=== PATIENT | male | born 1945 | race Caucasian/White ===

== ENCOUNTER → 2018-12-31 13:23 | Outpatient (CLI) | payer MEDICARE, OTHER, SELFPAY ==
[2018-12-31 14:19] LABS: BUN Creatinine Ratio 22.2 (6-22); Blood Urea Nitrogen 20 mg/dL (9-20); Calcium 10.2 mg/dL (8.4-10.2); Carbon Dioxide 28 mmol/L (22-32); Chloride 102 mmol/L (98-107); Estimated Glomerular Filt Rate > 60.0 mL/min (>60); Glucose 133 mg/dL (80-110); HEMOLYSIS 17 (0-50); Potassium 4.2 mmol/L (3.4-5.1); Sodium 139 mmol/L (137-145)
[2018-12-31 14:25] LABS: Hemoglobin A1C% w Est Avg Glu 5.8 % (4.0-6.0)
[2018-12-31 15:42] LABS: Vitamin D 25 Hydroxy (D3) 41.4 ng/mL (30.0-100.0)
== END ==
PROVIDERS: PCP Student in an Organized Health Care Education/Training Program; Visit Provider Student in an Organized Health Care Education/Training Program
DX: E11.9 Type 2 diabetes mellitus without complications (principal); E55.9 Vitamin D deficiency, unspecified; I10 Essential (primary) hypertension
CPT/HCPCS: 36415; 80048; 82306; 83036

== ENCOUNTER → 2019-01-06 09:00 | Outpatient (CLI) | payer MEDICARE, OTHER, SELFPAY ==
--- NOTE | 2019-01-06 09:02 | DI.US.S_ITS ---
PROCEDURE: US ABD AORTA ANEURYSM SCREEN INDICATIONS: AAA screen TECHNIQUE: Real time scanning was performed of the aorta and iliac arteries, with image documentation. COMPARISON: None. FINDINGS: Aorta: Proximal aortic diameter measures 2.7 cm. Mid-aorta measures 2.2 cm. Distal aortic diameter is 2.0 cm. Iliac arteries: Right common iliac artery measures 1.5 cm. Left common iliac artery measures 1.3 cm. IMPRESSION: 1. Mildly prominent right common iliac artery. Dictated by: Beverly Gray M.D. on 01/06/2019 at 15:30 Approved by: Beverly Gray M.D. on 01/06/2019 at 15:31
== END ==
PROVIDERS: PCP Student in an Organized Health Care Education/Training Program; Visit Provider Student in an Organized Health Care Education/Training Program
DX: Z13.6 Encounter for screening for cardiovascular disorders (principal); Z87.891 Personal history of nicotine dependence
CPT/HCPCS: 76706

== ENCOUNTER 2019-05-05 07:28 | Day surgery (SDC) | payer MEDICARE, OTHER, SELFPAY ==
[2019-05-05 07:57] VITALS: BP 141/92; PULSE 77; RESP 17; TEMP 36.4; O2SAT 99; BMI 24.3
[2019-05-05] MEDS: SODIUM CHLORIDE 0.9% 1,000 ML 200 ML IV (08:05)
--- NOTE | 2019-05-05 08:23 | P.HP_ITS ---
History of Present Illness History of Present Illness Date Patient Seen: 05/05/19 Time Patient Seen: 08:23 Chief complaint: [id number] SCREENING COLONOSCOPY Narrative: Patient presents for colorectal screening. He had a previous screening colonoscopy 13 years ago which was normal. On further history denies any recent gastrointestinal symptoms. No nausea, vomiting, abdominal pain, loss of appetite, unexplained weight loss, change in bowel habits, diarrhea, constipa tion, melena, hematochezia, or bright red blood per rectum. Patient History Medical History Diabetes mellitus (Chronic) Diverticular disease (Chronic) GERD (gastroesophageal reflux disease) (Chronic) Hyperlipidemia (Chronic) Hypertension (Chronic) Surgical History Biceps muscle tear (Resolved) History of knee replacement (~2008) History of repair of hiatal hernia History of tonsillectomy History of vasectomy Family History (Updated 12/30/18 @ 21:41 by Gabrielle Bang) Mother Congestive heart failure Father Myocardial infarction Social History household members: spouse Smoking Status: Never smoker Tobacco: How many years used: 5 Family & Social History Family History Mother Congestive heart failure Father Myocardial infarction Social History: household members spouse Tobacco & Substance use: Smoking Status Never smoker Meds Home Medications and Allergies Home Medications Medication Instructions Recorded Confirmed Type aspirin 81 mg PO HS #0 10/12/16 05/05/19 History losartan 100 mg tablet 100 mg PO QDAY #90 tab 01/21/19 05/05/19 Rx atorvastatin 20 mg tablet 20 mg PO HS #90 tab 01/28/19 05/05/19 Rx Allergies Allergy/AdvReac Type Severity Reaction Status Date / Time No Known Drug Allergies Allergy Verified 05/05/19 07:19 Review of Systems Review of Systems ROS Unobtainable: All systems reviewed & are unremarkable except as noted in HPI and below Exam Vital Signs (past 8 hours): - 05/05/19 07:57 Temperature 97.5 F L Pulse Rate 77 Respiratory Rate 17 Blood Pressure 141/92 H Pulse Oximetry 99 Oxygen Delivery Method Room Air Narrative Exam Narrative: General-no acute distress, well nourished HEENT-moist mucous membranes, no scleral icterus Neck-supple, no lymphadenopathy Chest- non labored respirations, clear to auscultation bilaterally Cardiac-regular rate no peripheral edema Abdomen-soft, nontender, non distended Extremities-warm, well perfused Neurological-alert and oriented, no focal deficits Assessment & Plan Assessment and plan (1) Screening for colon cancer: Current visit: Yes Status: Acute Assessment & Plan narrative: Patient is requiring colorectal screening. Colonoscopy is recommended. Technical details were discussed. Risks, benefits, alternatives explained. Risks including but not limited to sedation, aspiration, bleeding, pain, missed lesion, incomplete examination, need for further radiographic studies, colonic perforation, need for major abdominal surgery, and all attendant risks major surgery were discussed at length. All questions were answered to their satisfaction, and they voiced understanding.
--- NOTE | 2019-05-05 08:26 | PM.OP.ENDO ---
Operative Date/Time/Diagnoses Date of procedure: 05/05/19 Time of procedure: 08:26 Pre-op diagnosis: Screening colonoscopy Post-op diagnosis: other (diverticulosis) Procedure & Clinicians Study performed: Colonoscopy Same procedure as scheduled: Yes Indications: 74-year-old male last previous colonoscopy 13 years ago reportedly normal presents for screening Surgeon: Alexandr Watson Procedure Notes SCOAP/Timeout: Performed Procedure in detail: Patient placed in left lateral decubitus position. Time out was performed. Procedural sedation was administered with Versed and Fentanyl. A rectal exam demonstrated no external hemorrhoids no internal masses. Colonoscopy scope was placed into the rectum and advanced through the colon to the cecum. The ileocecal valve was identified. The scope was then slowly withdrawn examining colon thoroughly in all directions. The colonoscopy was notable for extensive arreola colonic diverticulosis. There were no masses, polyps or colitis. The scope was retroflexed within the rectum demonstrated grade 1 internal hemorrhoids. The rectum was desufflated and the scope removed. Patient tolerated procedure well. Scope withdrawal time: 6 Sedation minutes: 28 Findings: diverticulosis Specimen(s): none sent Complications: none Impression: diverticulosis Post-procedure Recommendations: Colonscopy in 10 years Disposition: PACU
[2019-05-05] MEDS: MIDAZOLAM 5 MG/5 ML VIAL IV (09:07)
[2019-05-05] MEDS: fentaNYL 250 MCG/5 ML INJ IV (09:07)
[2019-05-05] MEDS: ONDANSETRON 4 MG/2 ML INJ IV (09:08)
[2019-05-05 09:11] VITALS: BP 116/64; PULSE 65; RESP 14; TEMP 37.4; O2SAT 94
[2019-05-05 09:16] VITALS: BP 107/65; PULSE 64; RESP 19; O2SAT 93
[2019-05-05 09:20] VITALS: BP 94/63; PULSE 63; RESP 19; O2SAT 93
[2019-05-05 09:24] VITALS: BP 105/70; PULSE 68; RESP 13; O2SAT 97
--- NOTE | 2019-05-05 09:27 | SUR.PHASEI ---
Awake, HOB elevated, drinking juice, recalls pain during procedure when they were 'turning corners, it was a wow. Denies discomfort, dizziness
[2019-05-05 09:32] VITALS: BP 135/75; PULSE 64; RESP 21; TEMP 37.2; O2SAT 95
== END 2019-05-05 09:50 | disposition home or self-care (01) ==
PROVIDERS: PCP Student in an Organized Health Care Education/Training Program; Visit Provider Surgery
PROC: 0DJD8ZZ Inspection of Lower Intestinal Tract, Via Natural or Artificial Opening Endoscopic (ICD-10-PCS; CPT 45378; principal; 2019-05-05 08:30)
DX: Z12.11 Encounter for screening for malignant neoplasm of colon (principal); K57.30 Diverticulosis of large intestine without perforation or abscess without bleeding; E11.9 Type 2 diabetes mellitus without complications; I10 Essential (primary) hypertension; E78.5 Hyperlipidemia, unspecified
CPT/HCPCS: G0121; 99152; 99153; J2250; J2405; J3010

== ENCOUNTER → 2020-01-19 10:43 | Outpatient (CLI) | payer MEDICARE, OTHER, SELFPAY ==
--- NOTE | 2020-01-19 10:44 | DI.US.S_ITS ---
PROCEDURE: US ABDOMEN LIMITED INDICATIONS: Right common iliac artery aneurysm. TECHNIQUE: Real-time scanning was performed of the abdominal and retroperitoneal organs, with image documentation. COMPARISON: None. FINDINGS: Liver: Liver is normal in size and homogeneous in echotexture. Gallbladder: No gallstones identified. Normal gallbladder wall. No pericholecystic fluid. Negative sonographic Aguilar sign. Biliary ducts: Intrahepatic bile ducts are non-dilated. Extrahepatic bile duct caliber measures 3.3 mm. Normal is 6-7 mm or less in diameter, or 10 mm or less post-cholecystectomy. Pancreas: Not well-seen. Kidneys: Right renal cyst present measuring up to 2.4 cm. Aorta: Visualized aorta is normal in caliber at less than 3 cm. Iliacs: Proximal common iliac arteries are normal in caliber at less than 2.5 cm. IMPRESSION: 1. Increased hepatic echogenicity noted possibly related to hepatic steatosis but other sources of hepatocellular disease cannot be excluded. Recommend clinical correlation. 2. Right renal cyst. Dictated by: Talha Moffett [facility] Interpreted: Beverly Gray MD on 01/19/2020 at 13:20 Approved by: Beverly Gray M.D. on 01/19/2020 at 17:44
== END ==
PROVIDERS: PCP Student in an Organized Health Care Education/Training Program; Referring Provider Student in an Organized Health Care Education/Training Program; Visit Provider Student in an Organized Health Care Education/Training Program
DX: I72.3 Aneurysm of iliac artery (principal); N28.1 Cyst of kidney, acquired
CPT/HCPCS: 76705

== ENCOUNTER → 2020-03-05 15:06 | Outpatient (CLI) | payer MEDICARE, OTHER, SELFPAY ==
[2020-03-05 16:52] LABS: Hemoglobin A1C% w Est Avg Glu 6.2 % (4.0-6.0)
[2020-03-05 17:12] LABS: BUN Creatinine Ratio 14.8 (6-22); Blood Urea Nitrogen 20 mg/dL (9-20); Carbon Dioxide 27 mmol/L (22-32); Chloride 105 mmol/L (98-107); Estimated Glomerular Filt Rate 51.8 mL/min (>60); Glucose 97 mg/dL (80-110); HEMOLYSIS < 15 (0-50); Potassium 4.9 mmol/L (3.4-5.1); Sodium 139 mmol/L (137-145); Uric Acid 6.4 mg/dL (3.5-8.5)
[2020-03-05 18:06] LABS: Creatinine Urine Random 396.1 mg/dL; Microalbumi Creatinin Ratio Ur 65.8 ug/mg CR (<30); Microalbumin Urine Random 26.1 mg/dL (0-1.6)
== END ==
PROVIDERS: PCP Student in an Organized Health Care Education/Training Program; Referring Provider Student in an Organized Health Care Education/Training Program; Visit Provider Student in an Organized Health Care Education/Training Program
DX: E11.9 Type 2 diabetes mellitus without complications (principal); M10.9 Gout, unspecified; I10 Essential (primary) hypertension
CPT/HCPCS: 36415; 80048; 82043; 82570; 83036; 84550

== ENCOUNTER → 2020-06-21 09:24 | Outpatient (CLI) | payer MEDICARE, OTHER, SELFPAY ==
[2020-06-21 10:44] LABS: BUN Creatinine Ratio 23.4 (6-22); Blood Urea Nitrogen 22 mg/dL (9-20); Estimated Glomerular Filt Rate > 60.0 mL/min (>60)
[2020-06-21 11:45] LABS: Creatinine Urine Random 131.7 mg/dL
[2020-06-21 11:59] LABS: Microalbumin Urine Random < 0.6 mg/dL (0-1.6)
== END ==
PROVIDERS: PCP Student in an Organized Health Care Education/Training Program; Referring Provider Student in an Organized Health Care Education/Training Program; Visit Provider Student in an Organized Health Care Education/Training Program
DX: E11.9 Type 2 diabetes mellitus without complications (principal); I10 Essential (primary) hypertension; N17.9 Acute kidney failure, unspecified
CPT/HCPCS: 36415; 82043; 82565; 82570; 84520

== ENCOUNTER → 2020-10-01 10:16 | Outpatient (CLI) | payer MEDICARE, OTHER, SELFPAY ==
[2020-10-01] MEDS: COVID-19 VACC, Ad26(JANSSEN)/PF 0.5 ML IM (10:31)
== END ==
PROVIDERS: PCP Student in an Organized Health Care Education/Training Program; Visit Provider Internal Medicine
DX: Z23 Encounter for immunization (principal)
CPT/HCPCS: 0031A; 91303

== ENCOUNTER → 2020-10-06 13:18 | Outpatient (CLI) | payer MEDICARE, OTHER, SELFPAY ==
--- NOTE | 2020-10-30 11:05 | P.HOLT.S_ITS ---
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 Referral & Results Date Patient Seen: 10/06/20 Requesting provider: Anthony Galvan Indication: Palpitations Duration of monitoring (days): 7 Diary information: There was 1 patient triggered event and 1 patient diary entry These patient events were associated with sinus rhythm only Data: Minimum heart rate identified was 39 beats per minute at 10:47 on 10/10/2020 Maximum sinus heart rate was 122 beats per minute at 15:01 on 10/11/2020 Maximum overall heart rate was 174 beats per minute at 12:47 on 10/08/2020 during a 5 beat run of SVT Less than 1% of identified beats were ventricular or supraventricular ectopic in origin, which would classify them as rare. Patient had 1 run of nonsustained monomorphic ventricular tachycardia at 6 beats with a rate of 122 beats per minute. 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 A single run of nonsustained ventricular tachycardia also identified. No etiology for reported symptoms of palpitations identified on this study as patient events were associated only with sinus rhythm. Clinical correlation suggested
== END ==
PROVIDERS: PCP Student in an Organized Health Care Education/Training Program; Referring Provider Student in an Organized Health Care Education/Training Program; Visit Provider Student in an Organized Health Care Education/Training Program
DX: R00.2 Palpitations (principal)
CPT/HCPCS: 93242; 93244

== ENCOUNTER → 2021-07-11 08:51 | Outpatient (CLI) | payer MEDICARE, OTHER, SELFPAY ==
[2021-07-11 09:55] LABS: Hemoglobin A1C% w Est Avg Glu 6.1 % (4.0-6.0)
[2021-07-11 10:18] LABS: BUN Creatinine Ratio 19.6 (6-22); Blood Urea Nitrogen 18 mg/dL (9-20); Calcium 9.4 mg/dL (8.4-10.2); Carbon Dioxide 28 mmol/L (22-32); Chloride 107 mmol/L (98-107); Cholesterol 149 mg/dL (140-199); Estimated Glomerular Filt Rate > 60.0 mL/min (>60); Glucose 127 mg/dL (80-110); HDL Cholesterol 59 mg/dL (40-60); HEMOLYSIS < 15 (0-50); LDL Cholesterol Calculated 77 mg/dL (<100); Potassium 4.8 mmol/L (3.4-5.1); Sodium 139 mmol/L (137-145); Triglycerides 63 mg/dL (35-150)
[2021-07-11 14:49] LABS: Creatinine Urine Random 121.1 mg/dL
[2021-07-11 15:06] LABS: Microalbumin Urine Random < 0.6 mg/dL (0-1.6)
== END ==
PROVIDERS: PCP Student in an Organized Health Care Education/Training Program; Referring Provider Student in an Organized Health Care Education/Training Program; Visit Provider Student in an Organized Health Care Education/Training Program
DX: E11.69 Type 2 diabetes mellitus with other specified complication (principal); E78.5 Hyperlipidemia, unspecified; E11.9 Type 2 diabetes mellitus without complications; I10 Essential (primary) hypertension
CPT/HCPCS: 36415; 80048; 80061; 82043; 82570; 83036

== ENCOUNTER → 2022-01-11 09:32 | Outpatient (CLI) | payer MEDICARE, OTHER, SELFPAY ==
[2022-01-11 10:46] LABS: Hemoglobin A1C% w Est Avg Glu 6.3 % (4.0-6.0)
== END ==
PROVIDERS: PCP Student in an Organized Health Care Education/Training Program; Referring Provider Student in an Organized Health Care Education/Training Program; Visit Provider Student in an Organized Health Care Education/Training Program
DX: E11.9 Type 2 diabetes mellitus without complications (principal)
CPT/HCPCS: 36415; 83036

== ENCOUNTER → 2022-07-27 09:06 | Outpatient (CLI) | payer MEDICARE, OTHER, SELFPAY ==
[2022-07-27 10:24] LABS: Hemoglobin A1C% w Est Avg Glu 6.6 % (4.0-6.0)
[2022-07-27 10:41] LABS: Alanine Aminotransferase 30 IU/L (<50); Albumin 4.2 g/dL (3.5-5.0); Albumin Globulin Ratio 1.3 (1.0-2.8); Alkaline Phosphatase 87 U/L (38-126); Aspartate Aminotransferase 28 IU/L (17-59); BUN Creatinine Ratio 17.7 (6-22); Bilirubin Total 1.8 mg/dL (0.2-1.3); Blood Urea Nitrogen 17 mg/dL (9-20); Calcium 9.2 mg/dL (8.4-10.2); Carbon Dioxide 27 mmol/L (22-32); Chloride 103 mmol/L (98-107); Cholesterol 167 mg/dL (140-199); Estimated Glomerular Filt Rate > 60 mL/min (>60); Globulin 3.3 g/dL (1.7-4.1); Glucose 133 mg/dL (80-110); HDL Cholesterol 58 mg/dL (40-60); HEMOLYSIS < 15 (0-50); LDL Cholesterol Calculated 92 mg/dL (<100); Potassium 4.6 mmol/L (3.4-5.1); Sodium 138 mmol/L (137-145); Total Protein 7.5 g/dL (6.3-8.2); Triglycerides 86 mg/dL (35-150)
[2022-07-27 11:12] LABS: Creatinine Urine Random 151.1 mg/dL
[2022-07-27 11:15] LABS: Microalbumi Creatinin Ratio Ur 5.2 ug/mg CR (<30); Microalbumin Urine Random 0.8 mg/dL (0-1.6)
== END ==
PROVIDERS: PCP Student in an Organized Health Care Education/Training Program; Referring Provider Student in an Organized Health Care Education/Training Program; Visit Provider Student in an Organized Health Care Education/Training Program
DX: E11.69 Type 2 diabetes mellitus with other specified complication (principal); E78.5 Hyperlipidemia, unspecified; E11.9 Type 2 diabetes mellitus without complications; I10 Essential (primary) hypertension
CPT/HCPCS: 36415; 80053; 80061; 82043; 82570; 83036

== ENCOUNTER → 2023-10-29 07:22 | Outpatient (CLI) | payer MEDICARE, OTHER, SELFPAY ==
[2023-10-29 09:07] LABS: Alanine Aminotransferase 20 IU/L (<50); Albumin 3.8 g/dL (3.5-5.0); Albumin Globulin Ratio 1.3 (1.0-2.8); Alkaline Phosphatase 83 U/L (38-126); Aspartate Aminotransferase 25 IU/L (17-59); BUN Creatinine Ratio 24.1 (6-22); Bilirubin Total 0.9 mg/dL (0.2-1.3); Blood Urea Nitrogen 26 mg/dL (9-20); Calcium 9.4 mg/dL (8.4-10.2); Carbon Dioxide 25 mmol/L (22-32); Chloride 109 mmol/L (98-107); Cholesterol 145 mg/dL (140-199); Estimated Glomerular Filt Rate > 60 mL/min (>60); Glucose 134 mg/dL (80-110); HDL Cholesterol 63 mg/dL (40-60); HEMOLYSIS < 15 (0-50); LDL Cholesterol Calculated 67 mg/dL (<100); Potassium 4.5 mmol/L (3.4-5.1); Sodium 140 mmol/L (137-145); Total Protein 6.8 g/dL (6.3-8.2); Triglycerides 74 mg/dL (35-150)
== END ==
PROVIDERS: PCP Family Medicine; Referring Provider Family Medicine; Visit Provider Family Medicine
DX: E11.69 Type 2 diabetes mellitus with other specified complication (principal); E11.9 Type 2 diabetes mellitus without complications; E78.5 Hyperlipidemia, unspecified; I10 Essential (primary) hypertension
CPT/HCPCS: 36415; 80053; 80061

== ENCOUNTER → 2024-07-30 10:40 | Outpatient (CLI) | payer MEDICARE, SELFPAY ==
--- NOTE | 2024-07-30 10:41 | DI.RAD.S_ITS ---
PROCEDURE: XR HIP W PEL IF DONE RT 2V INDICATIONS: chronic right hip/groin pain TECHNIQUE: 2 views of the hip were acquired. COMPARISON: None. FINDINGS: Bones: Moderate to severe right and [id number] left hip arthrosis. No acute displaced fracture Soft tissues: No suspicious calcifications IMPRESSION: Right greater than left hip arthrosis. If there is high concern for further derangement, consider MRI evaluation. Dictated by: Bao Damon M.D. on 07/30/2024 at 14:46 Approved by: Bao Damon M.D. on 07/30/2024 at 14:46
== END ==
PROVIDERS: PCP Family Medicine; Referring Provider Family Medicine; Visit Provider Family Medicine
DX: M25.551 Pain in right hip (principal); M16.0 Bilateral primary osteoarthritis of hip
CPT/HCPCS: 73502

== ENCOUNTER → 2024-08-13 09:46 | Outpatient (CLI) | payer MEDICARE, SELFPAY ==
[2024-08-13 10:35] LABS: Add Manual Diff / Slide Review NO; Basophils Absolute Auto 0 /uL (0-100); Basophils Percent Auto 0.4 % (0-2); Eosinophils Absolute Auto 200 /uL (0-450); Eosinophils Percent Auto 1.9 % (2-4); Hematocrit 45.7 % (41-53); Hemoglobin 15.3 g/dL (13.5-17.5); Lymphocytes Absolute Auto 1700 /uL (1100-4500); Lymphocytes Percent Auto 19.9 % (25-40); Mean Corpuscular HGB Conc 33.5 % (30-36); Mean Corpuscular Hemoglobin 31.2 PG (26-34); Monocytes Absolute Auto 1000 /uL (0-900); Monocytes Percent Auto 12.1 % (3-14); Neutrophils Absolute Auto 5700 /uL (1500-7000); Neutrophils Percent Auto 65.7 % (50-75); Platelet Count 309 X10^3/uL (150-400); Red Blood Cell Count 4.91 X10^6/uL (4.5-5.9); Red Cell Distribution Width 15.7 % (11.6-14.8); White Blood Cell Count 8.7 X10^3/uL (4.5-11.0)
[2024-08-13 10:48] LABS: Hemoglobin A1C% w Est Avg Glu 6.7 % (4.0-6.0)
[2024-08-13 10:50] LABS: Alanine Aminotransferase 40 IU/L (<50); Albumin 4.8 g/dL (3.5-5.0); Albumin Globulin Ratio 1.5 (1.0-2.8); Alkaline Phosphatase 91 U/L (38-126); Aspartate Aminotransferase 37 IU/L (17-59); BUN Creatinine Ratio 19.1 (6-22); Bilirubin Total 1.6 mg/dL (0.2-1.3); Blood Urea Nitrogen 25 mg/dL (9-20); Calcium 10.6 mg/dL (8.4-10.2); Carbon Dioxide 26 mmol/L (22-32); Chloride 107 mmol/L (98-107); Cholesterol 175 mg/dL (140-199); Estimated Glomerular Filt Rate 56 mL/min (>60); Globulin 3.3 g/dL (1.7-4.1); Glucose 142 mg/dL (80-110); HDL Cholesterol 62 mg/dL (40-60); HEMOLYSIS < 15 (0-50); LDL Cholesterol Calculated 87 mg/dL (<100); Potassium 4.8 mmol/L (3.4-5.1); Sodium 141 mmol/L (137-145); Total Protein 8.1 g/dL (6.3-8.2); Triglycerides 128 mg/dL (35-150)
[2024-08-13 10:57] LABS: Microalbumin Urine Random 4.1 mg/dL (0-1.6)
== END ==
PROVIDERS: PCP Family Medicine; Referring Provider Family Medicine; Visit Provider Family Medicine
DX: Z00.00 Encounter for general adult medical examination without abnormal findings (principal); E11.69 Type 2 diabetes mellitus with other specified complication; E78.5 Hyperlipidemia, unspecified
CPT/HCPCS: 36415; 80053; 80061; 82043; 82570; 83036; 85025

== ENCOUNTER → 2024-08-21 07:45 | Outpatient (CLI) | payer MEDICARE, SELFPAY ==
--- NOTE | 2024-08-21 07:46 | DI.ECHO.S_ITS ---
[place] [facility]+ [facility] : : [id number] : [place] : : [id number] : : Phone: [phone] Echocardiogram Report + + :Name: ROXIE CLEARY Study Date: 08/21/2024 Height: 73 in : :[facility] ReadingLocation: Weight: 190 lb : : Gender: Male BSA: 2.1 m2 : :: 1945 Age: 79 yrs BP: 180/86 mmHg: :Reason For Study: RBBB, TACHY : :Ordering Physician: GAIL, : :TONA Performed By: Jerrod Krishna : :Referring: TONA REYNOLDS : + + Interpretation Summary Sinus bradycardia with heart rate 55-60 bpm. Uncontrolled hypertension. Normal LV size and mild concentric left ventricular hypertrophy. Normal wall motion and LV systolic function. Ejection fraction 60-65%. Stage I diastolic dysfunction. Moderate left atrial enlargement; otherwise normal chamber sizes. Mild aortic stenosis and regurgitation in the setting of trileaflet valve with mildly thickened and calcified leaflets. 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 At rest left ventricular outflow tract peak velocity is 1.77 m/s with peak gradient of 13 mmHg. With Valsalva maneuver peak velocity is 3.5 m/s with peak gradient of 49 mmHg. Estimated PA systolic pressure is 48 mmHg assuming right atrial pressure of 10 mmHg since inferior vena cava is not visualized. There is no prior study available for comparison. Recommend cardiology consultation. Procedure: A two-dimensional transthoracic echocardiogram with color flow and Doppler was performed. The study quality was technically good. There is no prior echocardiogram noted for this patient. The patient was in normal sinus rhythm during the exam. Left Ventricle: The left ventricle is normal in size. Left ventricular wall thickness is mildly increased. Proximal septal thickening is noted. There is no ventricular septal defect visualized. The ejection fraction is estimated to be 55-60%. There are no focal wall motion abnormalities. Diastolic parameters suggest a relaxation abnormality of the left ventricle, consistent with probable normal filling pressures. Right Ventricle: The right ventricle is normal in size and function. Atria: The left atrium is moderately dilated. The right atrium is normal in size. There is no Doppler evidence for an interatrial shunt. Mitral Valve: The mitral valve leaflets are slightly calcified. There is borderline mitral valve prolapse. There is trace mitral regurgitation. Aortic Valve: The aortic valve is trileaflet. The aortic valve is mildly calcified. There is mild to moderate aortic regurgitation. Tricuspid Valve: The tricuspid valve leaflets are thin and pliable. There is moderate tricuspid regurgitation. Pulmonic Valve: The pulmonic valve leaflets are thin and pliable; valve motion is normal. There is no pulmonic valvular regurgitation. Great Vessels: The aortic root is normal size. The ascending aorta is mildly enlarged. The pulmonary artery is normal size. The inferior vena cava was not visualized. Pericardium/ Pleura There is no pericardial effusion. MMode/2D Measurements & Calculations LVIDd: 5.5 cm LVOT diam: 2.1 cm LVIDs: 3.8 cm Ao root diam: 3.4 cm FS: 30.9 % asc Aorta Diam: 3.8 cm EPSS: 0.36 cm Ao Arch Diam (Prox Trans): 2.6 cm IVSd: 1.2 cm LVPWd: 1.3 cm LV paulino. diameter/BSA (cm/m^2): 2.6 LV sys. diameter/BSA (cm/m^2): 1.8 LA A2 area: 23.9 cm2 RA long axis: 5.2 cm LA A4 area: 27.8 cm2 RA area: 16.5 cm2 LA length (vol): 6.6 cm RA vol: 44.7 ml LA vol: 85.8 ml RA : 21.2 ml/m2 LA vol index: 40.7 ml/m2 RVD1 (basal): 3.5 cm RVD2 (mid): 2.6 cm TAPSE: 2.7 cm Doppler Measurements & Calculations Ao V2 max: 288.4 cm/sec LVOT Max Ronan: 177.1 cm/sec Ao V2 mean: 172.1 cm/sec LV V1 max P.5 mmHg Ao max P.3 mmHg LV V1 VTI: 40.0 cm Ao mean P.7 mmHg CHRISTOPHER(I,D): 2.4 cm2 Ao V2 VTI: 54.4 cm CHRISTOPHER(V,D): 2.0 cm2 sev ratio: 0.74 CHRISTOPHER indexed to BSA (cm^2/m^2): 1.2 AI P1/2t: 686.6 msec AI dec slope: 214.2 cm/sec2 MV E max ronan: 74.9 cm/sec TR max ronan: 309.8 cm/sec MV A max ronan: 87.5 cm/sec TR max P.4 mmHg MV E/A: 0.86 PA V2 max: 133.8 cm/sec Med Peak E' Ronan: 6.0 cm/sec PA V2 mean: 89.2 cm/sec E/E' med: 12.4 PA mean P.9 mmHg Lat Peak E' Ronan: 8.3 cm/sec PA pr(Accel): 25.9 mmHg E/E' lat: 9.1 E/e' average: 10.7 MV dec time: 0.24 sec SV(LVOT): 132.8 ml Electronically signed by: Jeri Moore M.D. on Reading Physician:08/21/2024 11:13 AM
== END ==
PROVIDERS: PCP Family Medicine; Referring Provider Family Medicine; Visit Provider Family Medicine
DX: I77.89 Other specified disorders of arteries and arterioles (principal); I10 Essential (primary) hypertension; R00.2 Palpitations; I45.10 Unspecified right bundle-branch block; I08.2 Rheumatic disorders of both aortic and tricuspid valves; E11.69 Type 2 diabetes mellitus with other specified complication; E78.5 Hyperlipidemia, unspecified
CPT/HCPCS: 93306

== ENCOUNTER 2024-10-25 22:34 | Emergency (ER) | payer MEDICARE, SELFPAY ==
[2024-10-25 22:38] VITALS: BP 158/75; PULSE 65; RESP 16; TEMP 36.4; O2SAT 98; BMI 25.7
--- NOTE | 2024-10-25 22:45 | DI.RAD.S_ITS ---
PROCEDURE: XR CHEST 1V INDICATIONS: chest pain TECHNIQUE: One view of the chest was acquired. COMPARISON: None. FINDINGS: Surgical changes and devices: There is postoperative change of the right humeral neck. Lungs and pleura: Mild generalized interstitial prominence can be seen. No pleural effusions or pneumothorax. Mediastinum: The cardiac contours are within normal limits. The aorta demonstrates calcification and tortuosity. Bones and chest wall: No suspicious bony lesions. Age-appropriate bony degenerative changes are seen. Mild dextroconvex scoliotic curvature is seen. Overlying soft tissues appear unremarkable. IMPRESSION: No acute cardiopulmonary abnormality is seen. Postoperative and degenerative changes are seen. Dictated by: Ryder Cox M.D. on 10/25/2024 at 22:29 Approved by: Ryder Cox M.D. on 10/25/2024 at 22:29
--- NOTE | 2024-10-25 22:49 | EKG_ITS ---
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
[2024-10-25 23:06] LABS: Add Manual Diff / Slide Review NO; Basophils Absolute Auto 0 /uL (0-100); Basophils Percent Auto 0.6 % (0-2); Eosinophils Absolute Auto 200 /uL (0-450); Eosinophils Percent Auto 2.4 % (2-4); Hematocrit 38.2 % (41-53); Lymphocytes Absolute Auto 2400 /uL (1100-4500); Lymphocytes Percent Auto 34.3 % (25-40); Mean Corpuscular HGB Conc 34.1 % (30-36); Mean Corpuscular Hemoglobin 32.3 PG (26-34); Mean Corpuscular Volume 94.6 fL (80-100); Monocytes Absolute Auto 800 /uL (0-900); Monocytes Percent Auto 11.5 % (3-14); Neutrophils Absolute Auto 3600 /uL (1500-7000); Neutrophils Percent Auto 51.2 % (50-75); Platelet Count 249 X10^3/uL (150-400); Red Blood Cell Count 4.04 X10^6/uL (4.5-5.9); Red Cell Distribution Width 14.4 % (11.6-14.8); White Blood Cell Count 7.1 X10^3/uL (4.5-11.0)
[2024-10-25 23:12] LABS: INR 0.9 (0.9-1.3); Prothrombin Time 10.6 SECONDS (9.4-12.5)
[2024-10-25 23:14] LABS: Alanine Aminotransferase 38 IU/L (<50); Albumin 4.2 g/dL (3.5-5.0); Albumin Globulin Ratio 1.4 (1.0-2.8); Alkaline Phosphatase 78 U/L (38-126); Aspartate Aminotransferase 35 IU/L (17-59); BUN Creatinine Ratio 24.2 (6-22); Bilirubin Total 1.1 mg/dL (0.2-1.3); Blood Urea Nitrogen 29 mg/dL (9-20); Calcium 9.2 mg/dL (8.4-10.2); Carbon Dioxide 23 mmol/L (22-32); Chloride 106 mmol/L (98-107); Creatine Kinase 88 U/L (55-170); Estimated Glomerular Filt Rate > 60 mL/min (>60); Glucose 195 mg/dL (80-110); HEMOLYSIS < 15 (0-50); Lipase 112 U/L (23-300); Magnesium 1.7 mg/dL (1.6-2.3); Sodium 138 mmol/L (137-145); Total Protein 7.2 g/dL (6.3-8.2)
[2024-10-25 23:23] LABS: PTT Partial Thromboplastin Tim 32 SECONDS (25.1-36.5)
[2024-10-25 23:26] LABS: NT-proBNP (BNP-Adult 18+) 147 pg/mL (<450); Troponin I 0.018 ng/mL (0.01-0.034)
[2024-10-26] VITALS (7 sets, daily range): BP systolic 145–183; BP diastolic 67–89; PULSE 59–77; RESP 16–18; O2SAT 95–98
--- NOTE | 2024-10-26 00:45 | PC.NURSE ---
syncopal episode at home, pt aao x 3 to room 7 per w/c without any c/o dizziness at this time, blood drawn and sent for second trop and warm blanket given
--- NOTE | 2024-10-26 01:09 | ED_ITS ---
HPI - Syncope General Chief Complaint: Syncope Stated Complaint: syncope Time Seen by Provider: 10/26/24 01:04 Source: patient, RN notes reviewed and old records reviewed Mode of arrival: Ambulatory Limitations: no limitations History of Present Illness HPI narrative: 79-year-old male history of hypertension, GERD I, diabetes, right bundle-branch block was lying in bed felt lightheaded like a head ferrari attempted to get out of bed and had what sounds like a syncopal episode with loss of consciousness for about 10 seconds. This was a little after 10:00 p.m. Patient presents with complaint of syncope. Patient was in bed has been in bed for little bit felt sort of lightheaded got up got some water laid back down felt lightheaded again checked his pulse he states it was in the 40s he went to get up to go to the living room passed out briefly for a few seconds. Patient states he never had any chest pain, no shortness of breath, no diaphoresis. He felt lightheaded prior to this. No nausea or vomiting. No loss of bowel or bladder control. No abdominal back or flank pain. No new urinary symptoms. No issues with bowel movements. Patient states he was not confused he was back to his normal self immediately afterwards. States it is normal heart rates in the 60s. Home medications include amlodipine, losartan, atorvastatin, aspirin 81 mg daily and omeprazole. Does note that he increased his amlodipine from 5-10 mg about 2 weeks ago with the primary care. He states his home blood pressures were running 120s but was having elevated pressures with the office. No other new medication changes. Has had multiple prior orthopedic surgeries and back surgery but no prior cardiac interventions. No tobacco, drinks 1 glass of wine nightly, marijuana but no other recreational drugs. Patient states he was currently asymptomatic. Related Data Home Medications Medication Instructions Recorded Confirmed aspirin 81 mg tablet,delayed 81 mg PO DAILY 07/30/22 08/13/24 release Previous Rx's Medication Instructions Recorded losartan 100 mg tablet 100 mg PO DAILY #90 tabs 06/24/24 amlodipine 10 mg tablet 10 mg PO DAILY #90 tabs 08/22/24 empagliflozin 10 mg tablet 10 mg PO DAILY #60 tabs 08/22/24 (Jardiance) atorvastatin 40 mg tablet 40 mg PO ONCE PM #90 tabs 10/06/24 Allergies Allergy/AdvReac Type Severity Reaction Status Date / Time No Known Drug Allergies Allergy Verified 10/25/24 22:44 Review of Systems Review of Systems ROS Unobtainable: All systems reviewed & are unremarkable except as noted in HPI and below Patient History Medical History Diabetes mellitus GERD (gastroesophageal reflux disease) Diverticular disease Hypertension Hyperlipidemia Surgical History Biceps muscle tear History of knee replacement (~2008) History of vasectomy History of repair of hiatal hernia History of tonsillectomy Family History Mother Congestive heart failure Father Myocardial infarction Social History household members: spouse Smoking Status: Never smoker Tobacco: How many years used: 5 Smoking Status: Never smoker Exam Narrative Exam Narrative: GENERAL: Alert and oriented x three, well-appearing male in no acute distress HEENT: Head normocephalic, atraumatic, EOMI, pupils reactive, face symmetric, moist mucous membranes NECK: Supple, full range of motion CARDIOVASCULAR: Regular rate and rhythm with 2 6 systolic ejection murmur heard best at the left sternal border, no rubs or gallops. No JVD. No edema bilateral lower extremities. RESPIRATORY: Breath sounds equal bilaterally, no wheezes rales or rhonchi. ABDOMEN: Soft, nontender. Normoactive bowel sounds all 4 quadrants. No guarding or rebound, rigidity, no mass : No CVA tenderness EXTREMITIES: Normal range of motion, no clubbing or edema. Neurovascularly intact. Left elbow is nontender full range of motion. NEUROLOGICAL: Cranial nerves II through XII grossly intact. Moving all extremities SKIN: Warm, dry, no petechiae, no rashes or lesions, patient was has a small amount of ecchymosis of the left elbow. Initial Vital Signs Initial Vital Signs: Vital Signs Temperature 97.6 F 10/25/24 22:38 Pulse Rate 65 10/25/24 22:38 Respiratory Rate 16 10/25/24 22:38 Blood Pressure 158/75 H 10/25/24 22:38 Pulse Oximetry 98 10/25/24 22:38 Oxygen Delivery Method Room Air 10/25/24 22:38 Course Orders Ordered: ED Orders 10/25/24 22:45 XR chest 1V Stat EKG-12 Lead Stat 10/25/24 22:55 Complete Blood Count AUTO DIFF Stat Comprehensive Metabolic Panel Stat Lipase Stat Magnesium Stat NT-proBNP (BNP-Adult 18+) Stat PTT Partial Thromboplastin Aureliano Stat Prothrombin Time INR Stat Troponin & CK Cardiac Panel Stat 10/26/24 00:50 Troponin I Stat Vital Signs Vital signs: Vital Signs - 8 hr 10/26/24 00:46 10/26/24 00:47 10/26/24 00:47 Pulse Rate 60 Respiratory Rate Blood Pressure 163/71 H Pulse Oximetry 96 95 Oxygen Delivery Method Oxygen Flow Rate 10/26/24 01:00 10/26/24 01:00 10/26/24 01:30 Pulse Rate 59 L 77 Respiratory Rate 18 Blood Pressure 145/67 H Pulse Oximetry 96 95 Oxygen Delivery Method Oxygen Flow Rate 10/26/24 01:30 10/26/24 02:00 10/26/24 02:01 Pulse Rate 65 66 Respiratory Rate Blood Pressure 147/70 H Pulse Oximetry 95 95 Oxygen Delivery Method Oxygen Flow Rate 10/26/24 02:01 10/26/24 02:09 Pulse Rate 61 Respiratory Rate 16 Blood Pressure 183/89 H 152/76 H Pulse Oximetry 98 Oxygen Delivery Method Room Air Oxygen Flow Rate 0 MDM - Syncope Lab Data 10/25/24 22:55 10/25/24 22:55 Labs: Lab Results 10/25/24 10/26/24 Range/Units 22:55 00:50 WBC 7.1 (4.5-11.0) X10^3/uL RBC 4.04 L (4.5-5.9) X10^6/uL Hgb 13.0 L (13.5-17.5) g/dL Hct 38.2 L (41-53) % MCV 94.6 (80-100) fL MCH 32.3 (26-34) PG MCHC 34.1 (30-36) % RDW 14.4 (11.6-14.8) % Plt Count 249 (150-400) X10^3/uL Neut % (Auto) 51.2 (50-75) % Lymph % (Auto) 34.3 (25-40) % [place] % (Auto) 11.5 (3-14) % Eos % (Auto) 2.4 (2-4) % Baso % (Auto) 0.6 (0-2) % Neut # (Auto) 3600 (7781-1995) /uL Lymph # (Auto) 2400 (3160-3746) /uL [place] # (Auto) 800 (0-900) /uL Eos # (Auto) 200 (0-450) /uL Baso # (Auto) 0 (0-100) /uL PT 10.6 (9.4-12.5) SECONDS INR 0.9 (0.9-1.3) APTT 32 (25.1-36.5) SECONDS Sodium 138 (137-145) mmol/L Potassium 4.0 (3.4-5.1) mmol/L Chloride 106 (98-107) mmol/L Carbon Dioxide 23 (22-32) mmol/L BUN 29 H (9-20) mg/dL Creatinine 1.20 (0.66-1.25) mg/dL Estimated GFR > 60 (>60) mL/min BUN/Creatinine Ratio 24.2 H (6-22) Glucose 195 H (80-110) mg/dL Calcium 9.2 (8.4-10.2) mg/dL Magnesium 1.7 (1.6-2.3) mg/dL Total Bilirubin 1.1 (0.2-1.3) mg/dL AST 35 (17-59) IU/L ALT 38 (<50) IU/L Alkaline Phosphatase 78 (38-126) U/L Total Creatine Kinase 88 (55-170) U/L Troponin I 0.018 0.017 (0.01-0.034) ng/mL NT-Pro-B Natriuret Pep 147 (<450) pg/mL Total Protein 7.2 (6.3-8.2) g/dL Albumin 4.2 (3.5-5.0) g/dL Globulin 3.0 (1.7-4.1) g/dL Albumin/Globulin Ratio 1.4 (1.0-2.8) Lipase 112 (23-300) U/L ECG Data Attestation: I personally reviewed and interpreted this ECG as follows: Prior ECG tracings: not available for review Interpretation: Sinus rhythm sinus arrhythmia rate of 65 HI 164 QRS of 148 QTC of 438, left axis deviation, right bundle-branch block. 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 [facility] Narrative Medical decision making narrative: EKG shows sinus rhythm sinus arrhythmia left axis deviation right bundle-branch no ST elevation. Labs show white count of 7 hemoglobin of 13 was 15 in July 2024 looks like he ranges between 15 14. Platelets are 249. INR PTT are normal, BUN 29 electrolytes are otherwise appropriate glucose is 195. Creatinine is 1.2 was 1.3 in July. LFTs are negative lipase is 112. Troponin 0.018 with a BNP of 147. Repeat troponin is 0.017 Chest x-ray shows no acute change Echo from July of 2024 shows sinus bradycardia with a rate of 55-60 normal LV size and mild concentric left ventricular hypertrophy EF of 60-65% with stage I diastolic dysfunction. Moderate left atrial enlargement otherwise normal chamber sizes mild aortic stenosis and regurg in the setting of trileaflet valve with mildly thickened and calcified leaflets. 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 No pericardial effusion. Patient has been asymptomatic since. Does not note that he recently increase in his amlodipine from 5-10 mg has not no other major changes. Discussed with the patient he can not even use to be slow to hold his amlodipine and follow up with his primary or go back to his prior dose of 5 mg. Discharge Plan Departure Patient Disposition: Home Clinical Impression: Syncope Instructions: DI for Syncope in Adults (Fainting) Activity Restrictions/Additional Instructions: Follow up with your physician for recheck. Because you have recently increase your amlodipine if you are having any lightheadedness or persistently low heart rate or blood pressure at home with your checks decrease your amlodipine dose back to 5 mg daily. Please return if you have any recurrent symptoms, passing out, lightheadedness, fevers, chest pain, shortness of breath, diaphoresis or sweatiness, vomiting, new swelling of your extremities or other new or concerning changes. Prescriptions: No Action aspirin 81 mg tablet,delayed release (DR/EC) 81 mg PO DAILY losartan 100 mg tablet 100 mg PO DAILY Qty: 90 2RF atorvastatin 40 mg tablet 40 mg PO ONCE PM Qty: 90 0RF Jardiance 10 mg tablet 10 mg PO DAILY Qty: 60 3RF amlodipine 10 mg tablet 10 mg PO DAILY Qty: 90 3RF Referrals: Bindu Bowden DO [Primary Care Provider] - Stand Alone Forms: Patient Portal/API/Survey
[2024-10-26 01:22] LABS: Troponin I 0.017 ng/mL (0.01-0.034)
== END 2024-10-26 02:15 | disposition home or self-care (01) ==
PROVIDERS: Emergency Provider Emergency Medicine; PCP Family Medicine
DX: R55 Syncope and collapse (principal); I45.10 Unspecified right bundle-branch block; Z86.79 Personal history of other diseases of the circulatory system
CPT/HCPCS: 36415; 71045; 80053; 82550; 83690; 83735; 83880; 84484; 85025; 85610; 85730; 93005; 99283; 99284

== ENCOUNTER 2024-11-12 07:58 | Emergency (ER) | payer MEDICARE, SELFPAY ==
[2024-11-12] VITALS (7 sets, daily range): BP systolic 143–158; BP diastolic 83–91; PULSE 74–153; RESP 18–29; TEMP 36.7–36.9; O2SAT 95–97; BMI 27.6
--- NOTE | 2024-11-12 08:06 | DI.RAD.S_ITS ---
PROCEDURE: XR CHEST 1V INDICATIONS: chest pain TECHNIQUE: One view of the chest was acquired. COMPARISON: [facility], CR, XR CHEST 1V, 10/25/2024, 23:09. FINDINGS: Surgical changes and devices: She proximal right humeral screws. Lungs and pleura: Lungs are clear. No pleural effusions or pneumothorax. Mediastinum: Mediastinal contours appear normal. Small hiatal hernia. Heart size is normal. Bones and chest wall: No suspicious bony lesions. Chronic left rotator cuff tear. Overlying soft tissues appear unremarkable. IMPRESSION: Small hiatal hernia. No evidence acute pulmonary process. Dictated by: Elvis Nicole M.D. on 11/12/2024 at 8:28 Approved by: Elvis Nicoel M.D. on 11/12/2024 at 8:29
--- NOTE | 2024-11-12 08:06 | EKG_ITS ---
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
--- NOTE | 2024-11-12 08:15 | ED.ARRPALP ---
HPI - Arrhythmia/Palpitations General Chief Complaint: Arrhythmia/Palpitations Stated Complaint: Fast heart beat. Time Seen by Provider: 11/12/24 08:00 Source: patient Mode of arrival: Family Vehicle History of Present Illness HPI narrative: Patient is a 79-year-old male with a history of diabetes, GERD, hypertension, hyperlipidemia, Grade 1 diastolic dysfunction, and a known right bundle branch block with intermittent palpitations. He presents with a complaint of palpitations that began at approximately 10:00 PM last night and have been constant since onset. He denies associated chest pain or shortness of breath but reports feeling exhausted and having difficulty walking due to hip pain, which he attributes to needing a hip replacement. He has not undergone surgery for the hip yet. He denies recent illness, runny nose, or exposure to sick contacts. He reports his blood pressure typically runs around 120/60 with a pulse of 60, but this morning he noted his diastolic blood pressure was elevated into the 80s, and at one point, his systolic blood pressure reached 114, which he found unusual. He denies being on blood thinners and has no history of abnormal heart rhythms aside from intermittent palpitations. He recalls a murmur being noted a few years ago but denies other significant cardiac issues. Medications: Amlodipine 10 mg, aspirin 81 mg, atorvastatin 40 mg, losartan 100 mg. Past Medical History: Diabetes, GERD, hypertension, hyperlipidemia, Grade 1 diastolic dysfunction, right bundle branch block, intermittent palpitations, history of heart murmur. Surgical History: Total knee replacement 18 years ago. Pertinent ROS: Positive for palpitations and exhaustion. Negative for chest pain, shortness of breath, recent illness, runny nose, exposure to sick contacts, abdominal pain, swelling in lower extremities, or increased work of breathing. Related Data Home Medications Medication Instructions Recorded Confirmed aspirin 81 mg tablet,delayed 81 mg PO DAILY 07/30/22 08/13/24 release Previous Rx's Medication Instructions Recorded losartan 100 mg tablet 100 mg PO DAILY #90 tabs 06/24/24 amlodipine 10 mg tablet 10 mg PO DAILY #90 tabs 08/22/24 empagliflozin 10 mg tablet 10 mg PO DAILY #60 tabs 08/22/24 (Jardiance) atorvastatin 40 mg tablet 40 mg PO ONCE PM #90 tabs 10/06/24 apixaban 5 mg tablet 5 mg PO BID #60 tabs 11/12/24 diltiazem HCl 120 mg 120 mg PO DAILY #30 caps 11/12/24 capsule,extended release 24 hr Allergies Allergy/AdvReac Type Severity Reaction Status Date / Time No Known Drug Allergies Allergy Verified 10/25/24 22:44 Review of Systems Review of Systems ROS Unobtainable: All systems reviewed & are unremarkable except as noted in HPI and below Patient History Medical History (Updated 11/12/24 @ 09:30 by Xander Jimenez MD) Diabetes mellitus GERD (gastroesophageal reflux disease) Diverticular disease Hypertension Hyperlipidemia Surgical History Biceps muscle tear History of knee replacement (~2008) History of vasectomy History of repair of hiatal hernia History of tonsillectomy Family History Mother Congestive heart failure Father Myocardial infarction Social History household members: spouse Smoking Status: Former smoker Tobacco: How many years used: 5 Smoking Status: Former smoker tobacco type: cigarettes Exam Narrative Exam Narrative: General: Alert, cooperative, appears fatigued. Skin: Warm, well-perfused extremities. No rash, unusual bruising, or prominent lesions. Head: Normocephalic, atraumatic. HEENT: Conjunctiva clear, EOM intact, PERRL, mucous membranes moist. Neck: Supple, normal range of motion. Heart: Tachycardia noted on monitor, regular rate and rhythm otherwise. No murmur, gallop, or rubs. Lungs: Clear to auscultation bilaterally. No rales, rhonchi, or wheezes. Abdomen: Soft, non-distended, non-tender. Bowel sounds normal. No mass or hernia. Back: Spine normal without deformity or tenderness, no CVA tenderness. Extremities: No significant swelling in lower extremities. Peripheral pulses intact. Neurologic: CN 2-12 normal. Normal sensation and motor exam. Psychiatric: Oriented ?3, normal mood and affect. Initial Vital Signs Initial Vital Signs: Vital Signs Temperature 98.5 F 11/12/24 08:06 Pulse Rate 153 H 11/12/24 08:06 Respiratory Rate 18 11/12/24 08:06 Blood Pressure 158/91 H 11/12/24 08:06 Pulse Oximetry 96 11/12/24 08:06 Oxygen Delivery Method Room Air 11/12/24 08:06 Course Orders Ordered: ED Orders 11/12/24 08:01 EKG-12 Lead Stat 11/12/24 08:06 XR chest 1V Stat EKG-12 Lead Stat 11/12/24 08:07 Complete Blood Count AUTO DIFF Stat Comprehensive Metabolic Panel Stat Lipase Stat Magnesium Stat NT-proBNP (BNP-Adult 18+) Stat PTT Partial Thromboplastin Aureliano Stat Prothrombin Time INR Stat Troponin & CK Cardiac Panel Stat Discontinued Medications Apixaban (Apixaban 5 Mg Tablet) 5 mg PO NOW ONE Stop: 11/12/24 09:25 Last Admin: 11/12/24 09:28 Dose: 5 mg Documented By: BERYL Aspirin (Aspirin 81 Mg Chew Tab) 324 mg PO NOW ONE Stop: 11/12/24 08:06 Last Admin: 11/12/24 08:18 Dose: 324 mg Documented By: BERYL Diltiazem HCl (Diltiazem 25 Mg/5 Ml Sdv) 20 mg IV NOW ONE Stop: 11/12/24 08:28 Last Admin: 11/12/24 08:32 Dose: 20 mg Documented By: BERYL Diltiazem HCl (Diltiazem 30 Mg Tablet) 60 mg PO NOW ONE Stop: 11/12/24 08:48 Last Admin: 11/12/24 08:53 Dose: 60 mg Documented By: BERYL Vital Signs Vital signs: Vital Signs - 8 hr 11/12/24 08:06 11/12/24 08:08 11/12/24 08:30 Temperature 98.5 F Pulse Rate 153 H 152 H 151 H Respiratory Rate 18 29 H 25 H Blood Pressure 158/91 H Pulse Oximetry 96 97 95 Oxygen Delivery Method Room Air 11/12/24 08:30 11/12/24 08:32 11/12/24 08:53 Temperature Pulse Rate 153 H 74 Respiratory Rate Blood Pressure 151/85 H 151/85 H 151/85 H Pulse Oximetry Oxygen Delivery Method 11/12/24 09:00 11/12/24 09:00 Temperature Pulse Rate 76 Respiratory Rate 21 Blood Pressure 143/83 H Pulse Oximetry 95 Oxygen Delivery Method MDM - Arrhythmia/Palpitations Differential Diagnosis Differential diagnosis: Likely palpitations, sinus tachycardia, artial fibrillation, artial flutter and supraventricular tachycardia Lab Data Attestation: I reviewed the patient's lab results. 11/12/24 08:07 11/12/24 08:07 Labs: Lab Results 11/12/24 Range/Units 08:07 WBC 7.6 (4.5-11.0) X10^3/uL RBC 4.45 L (4.5-5.9) X10^6/uL Hgb 14.5 (13.5-17.5) g/dL Hct 42.8 (41-53) % MCV 96.0 (80-100) fL MCH 32.5 (26-34) PG MCHC 33.8 (30-36) % RDW 14.4 (11.6-14.8) % Plt Count 271 (150-400) X10^3/uL Neut % (Auto) 66.6 (50-75) % Lymph % (Auto) 19.8 L (25-40) % [place] % (Auto) 11.7 (3-14) % Eos % (Auto) 1.5 L (2-4) % Baso % (Auto) 0.4 (0-2) % Neut # (Auto) 5100 (1803-3715) /uL Lymph # (Auto) 1500 (1554-3161) /uL [place] # (Auto) 900 (0-900) /uL Eos # (Auto) 100 (0-450) /uL Baso # (Auto) 0 (0-100) /uL PT 11.3 (9.4-12.5) SECONDS INR 1.0 (0.9-1.3) APTT 32 (25.1-36.5) SECONDS Sodium 138 (137-145) mmol/L Potassium 4.5 (3.4-5.1) mmol/L Chloride 107 (98-107) mmol/L Carbon Dioxide 21 L (22-32) mmol/L BUN 19 (9-20) mg/dL Creatinine 1.06 (0.66-1.25) mg/dL Estimated GFR > 60 (>60) mL/min BUN/Creatinine Ratio 17.9 (6-22) Glucose 255 H (70-99) mg/dL Calcium 9.7 (8.4-10.2) mg/dL Magnesium 1.7 (1.6-2.3) mg/dL Total Bilirubin 1.6 H (0.2-1.3) mg/dL AST 32 (17-59) IU/L ALT 34 (<50) IU/L Alkaline Phosphatase 112 (38-126) U/L Total Creatine Kinase 87 (55-170) U/L Troponin I 0.026 (0.01-0.034) ng/mL NT-Pro-B Natriuret Pep 433 (<450) pg/mL Total Protein 7.7 (6.3-8.2) g/dL Albumin 4.4 (3.5-5.0) g/dL Globulin 3.3 (1.7-4.1) g/dL Albumin/Globulin Ratio 1.3 (1.0-2.8) Lipase 70 (23-300) U/L I have reviewed patient's laboratory data which includes a white blood count of 7.6, hemoglobin of 14.5, no significant electrolyte abnormalities that would be causing patient's arrhythmia there is no significant hyponatremia, hyperkalemia, patient has good kidney function. Patient's magnesium is within normal limits. Patient has mild elevation from his baseline and troponin at point 026 which is likely secondary to his tachydysrhythmia, patient's BNP found to be 433 with no significant elevations. ECG Data Attestation: I personally reviewed and interpreted this ECG as follows: Interpretation: I reviewed patient's initial EKG that shows a rate of 150 with a wide complex QRS however upon evaluation of patient's old EKGs he appears to have right bundle that is known, I have lower suspicion for ventricular tachycardia and higher suspicion for SVT with aberrancy or AFib with aberrancy given this known right bundle and not significantly wide QRS complex that I believe that it is V-tach. Patient does have some ST segment depression likely secondary to rate related changes. We will reassess EKG after rate control. MDM Narrative Medical decision making narrative: INITIAL EVALUATION AND PLAN: - Patient is noted to be in a tachycardic rhythm; further evaluation is required to determine the cause and manage the heart rate. - Labs to include electrolytes and troponin to assess cardiac strain and evaluate for ischemia. - Initiate measures to slow heart rate or restore normal rhythm. - Monitor for any changes in cardiac status or symptoms. Differential diagnosis includes but is not limited to: arrhythmia, electrolyte imbalance, cardiac ischemia, and stress-induced tachycardia. -patient hemodynamically stable upon initial evaluation in the emergency department no need for cardioversion at this time given mentating appropriately no hypotension. Bedside ultrasound was performed that showed what appeared to be good ejection fraction in the ventricles no pericardial effusion. Patient states that symptoms began last night around 10 however unclear if he has had paroxysmal episodes, endorses occasional palpitations, patient only on aspirin 81 not currently on any anticoagulation. -no response to vagal maneuvers, we will proceed with dose of diltiazem in order to assist with rate control. -after dose of IV diltiazem patient has good rate control with a rate of 74 appears to be in atrial fibrillation on repeat EKG patient does have evidence of his previously known right bundle branch block. We will administer p.o. dose of diltiazem for continued rate control, patient has no previous echocardiogram, no initiation on blood thinners, CHADS-VASc score calculated at 4. -discussed the case with Dr. Oscar of the inpatient team, given patient is now asymptomatic with good rate control patient will be discharged on oral diltiazem and Eliquis, patient has follow up with his primary care doctor within the next 2 days, appropriate for discharge at this time with long discussion on return precautions done with the patient. -We had a shared decision-making conversation in regards to the initiation of oral anticoagulations including the risks and benefits including decreased risk of clot formation and stroke but increased risk of bleeding with any traumatic injuries or increased risk of GI bleed, patient denies any history of GI bleeds in the past has had no history of significant bleeding. All questions answered patient is discharged with instructions to follow up with primary care doctor Discharge Plan Departure Patient Disposition: Home Clinical Impression: Atrial fibrillation Instructions: Arrhythmias Activity Restrictions/Additional Instructions: You were seen in the emergency department today and diagnosed with an abnormal heart rhythm known as atrial fibrillation, you still are currently in his heart rhythm and will need to see your primary care doctor as soon as possible for re-evaluation. We have mentioned that we started you on 2 new medications when his name diltiazem what is needed Eliquis which are medications to control the rate of your heart as well as decrease your risk of creating a blood clot while you are in this abnormal rhythm. You will need to follow up with your primary care doctor for extended prescriptions for these medications and titration of dosage. If you have worsening symptoms such as chest pain shortness of breath return of your significantly fast heart rate please return to the emergency department for re-evaluation. Prescriptions: New diltiazem HCl 120 mg capsule,extended release 24hr 120 mg PO DAILY Qty: 30 0RF apixaban 5 mg tablet 5 mg PO BID Qty: 60 0RF No Action aspirin 81 mg tablet,delayed release (DR/EC) 81 mg PO DAILY losartan 100 mg tablet 100 mg PO DAILY Qty: 90 2RF atorvastatin 40 mg tablet 40 mg PO ONCE PM Qty: 90 0RF Jardiance 10 mg tablet 10 mg PO DAILY Qty: 60 3RF amlodipine 10 mg tablet 10 mg PO DAILY Qty: 90 3RF Referrals: Bindu Bowden, [Primary Care Provider] - As soon as possible (Patient found to have new atrial fibrillation in the emergency department today rate control with IV diltiazem discharged on Eliquis and diltiazem oral. We will need outpatient management of atrial fibrillation and cardiac consultation in the future potentially) Stand Alone Forms: Patient Portal/API/Survey
[2024-11-12 08:16] LABS: Add Manual Diff / Slide Review NO; Basophils Absolute Auto 0 /uL (0-100); Basophils Percent Auto 0.4 % (0-2); Eosinophils Absolute Auto 100 /uL (0-450); Eosinophils Percent Auto 1.5 % (2-4); Hematocrit 42.8 % (41-53); Hemoglobin 14.5 g/dL (13.5-17.5); Lymphocytes Absolute Auto 1500 /uL (1100-4500); Lymphocytes Percent Auto 19.8 % (25-40); Mean Corpuscular HGB Conc 33.8 % (30-36); Mean Corpuscular Hemoglobin 32.5 PG (26-34); Monocytes Absolute Auto 900 /uL (0-900); Monocytes Percent Auto 11.7 % (3-14); Neutrophils Absolute Auto 5100 /uL (1500-7000); Neutrophils Percent Auto 66.6 % (50-75); Platelet Count 271 X10^3/uL (150-400); Red Blood Cell Count 4.45 X10^6/uL (4.5-5.9); Red Cell Distribution Width 14.4 % (11.6-14.8); White Blood Cell Count 7.6 X10^3/uL (4.5-11.0)
[2024-11-12] MEDS: ASPIRIN 81 MG CHEW TAB 324 MG PO (08:18)
--- NOTE | 2024-11-12 08:21 | PC.NURSE ---
Addendum entered by Collette Alejandro R.N. 11/12/24 08:40: Pt HR controlled at 79. Dr notified. New EKG done & handed to doctor. Original Note: Pt arrived to dept c/o with rapid HR & states that he feels like his heart is fluttering. Denies SOB, CP, n/v, dizziness. Denies hx of cardiac arrhythmia and states that he lives an active life. Hx HTN. HR upon arrival 155. Skin pink, warm, dry. Ambulates with steady gait and a&ox4. Vagal maneuvers attempted x2. No change in pt HR or rhythm. Dr at bedside and aware of pt status.
[2024-11-12 08:22] LABS: Prothrombin Time 11.3 SECONDS (9.4-12.5)
[2024-11-12 08:25] LABS: PTT Partial Thromboplastin Tim 32 SECONDS (25.1-36.5)
[2024-11-12 08:26] LABS: Alanine Aminotransferase 34 IU/L (<50); Albumin 4.4 g/dL (3.5-5.0); Albumin Globulin Ratio 1.3 (1.0-2.8); Alkaline Phosphatase 112 U/L (38-126); Aspartate Aminotransferase 32 IU/L (17-59); BUN Creatinine Ratio 17.9 (6-22); Bilirubin Total 1.6 mg/dL (0.2-1.3); Blood Urea Nitrogen 19 mg/dL (9-20); Calcium 9.7 mg/dL (8.4-10.2); Carbon Dioxide 21 mmol/L (22-32); Chloride 107 mmol/L (98-107); Creatine Kinase 87 U/L (55-170); Estimated Glomerular Filt Rate > 60 mL/min (>60); Globulin 3.3 g/dL (1.7-4.1); Glucose 255 mg/dL (70-99); HEMOLYSIS < 15 (0-50); Lipase 70 U/L (23-300); Magnesium 1.7 mg/dL (1.6-2.3); Potassium 4.5 mmol/L (3.4-5.1); Sodium 138 mmol/L (137-145); Total Protein 7.7 g/dL (6.3-8.2)
[2024-11-12] MEDS: dilTIAZem 25 MG/5 ML SDV 20 MG IV (08:32)
[2024-11-12 08:38] LABS: NT-proBNP (BNP-Adult 18+) 433 pg/mL (<450); Troponin I 0.026 ng/mL (0.01-0.034)
--- NOTE | 2024-11-12 08:39 | EKG_ITS ---
[address] [address] Test Date: 2024-11-12 Pat Name: Michael Dove Department: 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
[2024-11-12] MEDS: dilTIAZem 30 MG TABLET 60 MG PO (08:53)
[2024-11-12] MEDS: APIXABAN 5 MG TABLET PO (09:28)
== END 2024-11-12 09:51 | disposition home or self-care (01) ==
PROVIDERS: Emergency Provider Emergency Medicine; PCP Family Medicine
DX: I48.91 Unspecified atrial fibrillation (principal); I45.10 Unspecified right bundle-branch block; I10 Essential (primary) hypertension
CPT/HCPCS: 36415; 71045; 80053; 82550; 83690; 83735; 83880; 84484; 85025; 85610; 85730; 93005; 93010; 96374; 99284

== ENCOUNTER → 2024-11-17 12:17 | Outpatient (CLI) | payer MEDICARE, SELFPAY ==
[2024-11-17 13:21] LABS: TSH w/ Reflex to FT4 0.74 uIU/mL (0.47-4.68)
== END ==
PROVIDERS: PCP Family Medicine; Referring Provider Family Medicine; Visit Provider Family Medicine
DX: I48.91 Unspecified atrial fibrillation (principal); I51.89 Other ill-defined heart diseases
CPT/HCPCS: 36415; 84443

== ENCOUNTER → 2024-11-20 09:45 | Outpatient (CLI) | payer MEDICARE, SELFPAY | LOC: CAR 09:45 | PROVIDERS: PCP Family Medicine; Referring Provider Family Medicine; Visit Provider Family Medicine | DX: R00.2 Palpitations (principal) | CPT/HCPCS: 93246 ==

== ENCOUNTER 2025-01-27 06:08 | Day surgery (SDC) | payer MEDICARE, SELFPAY ==
[2025-01-14 08:23] VITALS: BMI 25.7
[2025-01-27] VITALS (21 sets, daily range): BP systolic 103–190; BP diastolic 72–94; PULSE 72–110; RESP 16–26; TEMP 36.3–37.1; O2SAT 93–98; BMI 25.7
--- NOTE | 2025-01-27 | DI.RAD.S_ITS ---
PROCEDURE: XR HIP W PEL IF DONE RT 2V INDICATIONS: POST OP TECHNIQUE: Two views of the right hip were acquired. COMPARISON: [facility], CR, XR HIP W PEL RT 2V, 01/27/2025, 9:08. FINDINGS: Bones: There are no osseous abnormalities. SI and hip joints: Right total hip prostheses in near anatomic alignment. Mild left hip degeneration and mild bilateral SI degeneration noted. Soft tissues: Mild postsurgical soft tissue swelling gas seen as expected IMPRESSION: Right hip prostheses in near anatomic alignment. Dictated by: Efrain Zaragoza M.D. on 01/28/2025 at 11:23 Approved by: Efrain Zaragoza M.D. on 01/28/2025 at 11:24
--- NOTE | 2025-01-27 06:00 | DI.RAD.S_ITS ---
PROCEDURE: XR HIP W PEL IF DONE RT 2V INDICATIONS: right total hip TECHNIQUE: Four spot fluoroscopic intraoperative images of the right hip. COMPARISON: [facility], KEVEN, XR HIP W PEL IF DONE RT 2V, 07/30/2024, 10:56. FINDINGS and IMPRESSION: Spot fluoroscopic intraoperative images demonstrate placement of a right total hip arthroplasty with hardware components in expected positions. Approved by: Jhonny Arrieta M.D. on 01/27/2025 at 10:24
[2025-01-27] MEDS: VANCOMYCIN 1,000 MG in SODIUM CHLORIDE 0.9% 250 ML 250 MG IV (07:06)
[2025-01-27] MEDS: CELECOXIB 200 MG CAPSULE PO (07:06)
[2025-01-27] MEDS: ACETAMINOPHEN 325 MG TABLET 975 MG PO (07:06)
--- NOTE | 2025-01-27 07:42 | PM.PREOP ---
Pre-operative Note Interval Note History & Physical reviewed/Exam performed by Physician: Yes Changes to H&P: No
--- NOTE | 2025-01-27 07:42 | PM.OP.1 ---
Operative Date/Time/Diagnoses Date of procedure: 01/27/25 Time of procedure: 08:00 Pre-op diagnosis: Right hip OA Post-op diagnosis: same Procedure & Clinicians Procedure: Right total hip arthroplasty anterior approach Same procedure(s) as scheduled: Yes Indications: The patient has had progressively worsening right hip pain with radiographic changes consistent with arthritis. Non-operative management has failed and the patient has requested total hip replacement. The risks, benefits and alternatives to surgery were discussed with the patient prior to proceeding. Risks discussed included, but were not limited to, failure to relieve pain, leg length discrepancy, dislocation, stiffness, infection, nerve damage, deep venous thrombosis, pulmonary embolism, stroke, coma, heart attack, permanent paralysis and , as well as the potential need for eventual revision of the prosthetic. Surgeon: Myriam Gallegos Underwriting Technician: Martin Nicole Anesthesia Type: General Operative Notes Findings: Severe right hip OA, adequate bone, adequate stability Closure Type: primary Specimen(s): none sent Prosthetic devices, grafts, tissues, transplants, or devices: Gallegos and nephew R3 size 58, neutral poly liner,one 6.5 mm screw, polar stem standard offset size 4, 36+ 4 cobalt chrome head Applied: none Estimated Blood Loss (mL): 250 Blood products transfused: none Procedure in detail: The patient was brought to the operating room. Patient was carefully positioned in the supine position. Time-out was performed and antibiotics were given. Anesthesia was induced. He was positioned in the on the table in order to allow hyperextension of the hip. The right lower extremity was prepped and draped in a standard sterile fashion. An anterior right hip incision was made 1 fingerbreadth lateral to the anterior superior iliac spine and extended distally towards the greater trochanter. Dissection was carried out through skin and subcutaneous tissues. Superficial hemostasis was achieved. The fascia over the tensor fascia tracey was defined and incised with a knife. Two Allis clamps were used to grasp the fascia. Tensor fascia tracey was retracted laterally. A gelpi retractor was placed. Dissection was carried out down along the neck. The circumflex vessels were carefully identified and cauterized with the Aqua Mantis. A PA was used during the procedure and was essential for intraoperative retraction and safe implantation of the components. There was good visualization of the femoral neck. A Cobra was placed superior to the neck and the gluteus fibers were carefully stripped from that superior aspect of the capsule. A 2nd retractor was placed along the inferior aspect of the neck. The rectus insertion along the capsule was partially released. A 3rd retractor that was then gently placed over the rim of the acetabulum under the rectus. Capsule was carefully incised and released from the intertrochanteric line circumferentially superior to the mid sagittal line and inferiorly to the mid sagittal line until the lesser trochanter was palpable. A tag stitch was placed both in the superior and inferior limb of the capsular insertion. Along the acetabulum capsule was also released up to the mid sagittal 12:00 position. A portion of the labrum was resected. A saw was used to perform an osteotomy at the level of the intertrochanteric line and the junction of the superior femoral neck leaving approximately 1 finger breath of residual inferior neck above the lesser trochanter. A 2nd cut was made along the femoral neck at the base of the head and a napkin ring of neck was removed. Corkscrew was placed in the femoral head and the head was removed without difficulty. Retractors were then repositioned around the acetabulum. Residual labrum was resected and additional osteophytes were removed. A reamer that was 4 mm below the templated size was placed by hand in the acetabulum and it was reamed to centralize the acetabulum. It was then reamed up to 2 under the templated size and fluoroscopy was brought in to confirm the position of the reaming and depth of reaming. I reamed 1 under the anticipated size. A trial cup was placed and noted that it was appropriately sized and fluoroscopy confirmed position and depth. The component was open and inserted without difficulty fluoroscopic imaging was used to confirm that the cup had been adequately seated and was well positioned. Neutral poly liner was placed. It was further stabilized with a single screw. The cup was tested and noted to be stable. Attention was then directed to the femur. The femur was gently hyperextended additional capsular release was performed as needed in order to allow adequate visualization of the proximal femur with elevation of the femur. Patient was placed in a hyperextended slightly adducted position with maximum external rotation. Box osteotome was used to check for any residual neck as well as sclerotic bone along the trochanter. [place] pepper was placed in the femur. Additional broaching was performed. Canal finder was used to determine the alignment of the canal and position. Size 1 broach was placed. The canal was then appropriately broached up to the templated size as long as there was adequate stability of the broach and serial advancement of the broach without excessive impingement. Specific attention was directed at avoiding varus attempting to direct the distal aspect of the broach more anteriorly and avoiding excessive anteversion. Trial reduction showed acceptable range of motion, good stability, no posterior impingement, scientologist of leg length and appropriate lateral shuck. I also hyperflexed the hip and checked that there was no impingement anteriorly and there was good stability with flexion, adduction and internal rotation. Marcaine and Exparel were injected. The stem was placed without difficulty. Repeat trial reduction and x-ray showed acceptable overall position, length, and no evidence of the femoral fracture. Final head was placed. Wound was meticulously irrigated with normal saline. The hip was reduced and additional Exparel and Marcaine were injected. The capsule was closed with interrupted nonabsorbable sutures. The fascia of the tensor was closed with interrupted and running Vicryl. No drain was placed. Any tensor fascia tracey muscle that appeared to be contused or injured which was a minimal amount was carefully resected. Capsule around the tensor was injected with Exparel and Marcaine. The skin was closed with barbed stitches for the subcutaneous tissue and skin. We also used surgical glue. The wound was dressed sterilely. Brief Betadine soak was also used and was meticulously irrigated with normal saline. Patient was transferred to recovery room in satisfactory condition. Complications: none Post-operative Condition: stable Disposition: Acute Care Plan for aftercare: The patient will be maintained on a standard total hip replacement protocol with weight bearing as tolerated and anterior hip precautions. The patient will receive Eliquis and sequential compression devices for DVT prophylaxis. The patient will be discharged home when safe for the home environment.
[2025-01-27] MEDS: CEFAZOLIN 2 GM/100 ML PREMIX 100 ML IV (08:00)
[2025-01-27] MEDS: TRANEXAMIC ACID 1,000 MG VIAL 1000 MG INJ ×2 (08:02→10:00)
--- NOTE | 2025-01-27 08:29 | SUR.OPER ---
Supine on padded [place] table with bilateral legs secured in padded positioning boots and suspended in positioning spars, operative leg in traction per surgeon. Head on one pillow. Arm on non-operative side secured on padded armboard <90 degrees abduction. Arm on operative side padded and resting across chest then secured with tape over sheet. Padded perineal post in place per surgeon.
[2025-01-27] MEDS: BUPIVACAINE LIPOSOME 266 MG/20 ML VIAL INJ (08:37)
[2025-01-27] MEDS: BUPIVACAINE 0.25% W/ EPI 30 ML VIAL 60 ML INJ (08:38)
[2025-01-27] MEDS: LACTATED RINGERS 1,000 ML 42 ML IV (09:58)
[2025-01-27] MEDS: OXYCODONE IR 5 MG TABLET PO ×2 (11:05→13:00)
[2025-01-27] MEDS: LABETALOL 20 MG/4 ML SYRINGE 5 MG IV (11:21)
--- NOTE | 2025-01-27 12:55 | SUR.PHASEII ---
Pt ambulated to bathroom with personal 4ww and 2x standby assist. Pt dressed by and DORYS Kurtz. VSS, see flowsheet. Pt optimal for physical therapy.
--- NOTE | 2025-01-27 13:17 | SUR.PHASEII ---
PT at bedside to evalute patient. Orthostatic BPs WNL. Tolerated well.
--- NOTE | 2025-01-27 13:36 | PT.IIE ---
Current Diagnoses Unilateral primary osteoarthritis, right hip (01/27/25) Surgery Performed Operation Date: 01/27/25 07:45 Actual Procedures p Total Hip Arthroplasty/Anterior Approach(Right) - Myriam Gallegos MD Surgical History (Last Updated 01/14/25 @ 09:21 by Jeana Bernard, RN) Biceps muscle tear History of knee replacement (~2008) History of lumbar fusion History of nasal surgery History of repair of hiatal hernia History of tonsillectomy History of vasectomy Hx of shoulder surgery Medical History (Last Updated 01/14/25 @ 09:01 by Jeana Bernard RN) Diabetes mellitus Diverticular disease GERD (gastroesophageal reflux disease) History of syncope [place] (hard of hearing) Hyperlipidemia Hypertension NSVT (nonsustained ventricular tachycardia) Physical Therapy Inpatient Evaluation/Re-Eval M1 PT/OT-IP Prior Functional Status Start: 01/27/25 13:28 Freq: NEEDED Status: Active Protocol: Document 01/27/25 13:08 MB (Rec: 01/27/25 13:36 MB Desktop) Medical Review Prior Functional Status Medical History Yes Reviewed Communication [place] Mobility and Gait I Activities of Daily I Living and IADL's Social History Household Members spouse Living Arrangements House Number of Floors ( One Floor Floors) Number of Stairs To No steps to enter Enter/Railing? Home Environment High Toilet,Walk in Shower,Built-In Shower Seat Home Equipment Front Wheel Walker,Hand Held Shower,Grab Bars In Shower Employment Status Retired M2 PT-IP Current Condition Start: 01/27/25 13:28 Freq: NEEDED Status: Active Protocol: Document 01/27/25 13:08 MB (Rec: 01/27/25 13:36 MB Desktop) Physical Therapy Current Condition Current Condition Evaluation Date 01/27/25 Treatment Diagnosis Right anterior hip replacement M3 PT-IP Subjective Start: 01/27/25 13:28 Freq: NEEDED Status: Active Protocol: Document 01/27/25 13:08 MB (Rec: 01/27/25 13:36 MB Desktop) Subjective Physical Therapy Visit Type Type Initial Evaluation Visit Start Time 13:08 Visit Stop Time 13:28 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 They report he had a pre-op appointment at [facility] and got handouts. They are not sure about anterior hip precautions that Dr. Gallegos ordered. Dr. Gallegos is available during assessment and she reports no hyperextension, no falls and progress to cane as appropriate. Therapy Pain Assessment Pain When Pain Assessed At Rest Pain Present Pain Present Denied Pain M4 PT-IP Mobility and Gait Start: 01/27/25 13:28 Freq: NEEDED Status: Active Protocol: Document 01/27/25 13:08 MB (Rec: 01/27/25 13:36 MB Desktop) PT-Bed Mobility Assessment Supine to Sit Supine to Sit Independent Sit to Supine Sit to Supine Independent Scooting Scooting to Edge of Independent Bed PT-Transfer Assessment Sit to and From Stand Sit to and from Independent Stand Equipment Transfer Assistive None,Gait Belt,Front Wheeled Walker Device Orthotic/Prosthetic No Devices or Brace: Transfers Transfer Destination Bed Transfer Technique Ambulation Transfer Ability Level of Assist Independent Gait Assessment Gait Gait Assistance Independent Required: Distance (Feet) 100 Able to Maintain Yes Weight Bearing Status During Gait Assistive Devices Assistive Device Gait Belt,Front Wheeled Walker Orthotic/Prosthetic No Devices or Brace: Gait Deviations General Gait Pattern Antalgic,Decreased Stride Length,Decreased Feet Clearance,Step-to Gait Factors Limiting Gait Function Factors Limiting Decreased Strength,Limited Range of Motion Gait Function Comments Gait Comments Good movement post-op a few hours Stair Climbing Assessment Comments Stair Climbing No steps at home Comments PT-Balance Assessment Sitting Balance and Reactions Static Sitting Normal Balance Ability Dynamic Sitting Normal Balance Ability Standing Balance and Reactions Static Standing Good Balance Ability Dynamic Standing Good Balance Ability Device Used RW M5 PT-IP Objective Assessments Start: 01/27/25 13:28 Freq: NEEDED Status: Active Protocol: Document 01/27/25 13:08 MB (Rec: 01/27/25 13:36 MB Desktop) Orientation Orientation/Cognition Level of Alertness Alert Orientation Name,Birthday Safety Awareness Decreased Safety Awareness Memory Description No Deficits Noted Gross Range of Motion Upper Extremity ROM Assessment Within Functional Limits Lower Extremity ROM Assessment Right Impaired Impairments No MMT post-op and B LEs are functional with mobility, pt reports some right hip and knee stiffness now that right hip is post-op and pt has history of right TKA Strength Upper Extremity Strength Assessment Within Functional Limits Lower Extremity Strength Assessment Right Impaired Comments Strength Comments No MMT immediately post-op Coordination Assessment Gross Coordination Gross Coordination Impaired Sensation Assessment Comments Sensation Comments Denies paresthesias Muscle Tone Muscle Tone WNL Yes M6 PT-IP Treatment Start: 01/27/25 13:28 Freq: NEEDED Status: Active Protocol: Document 01/27/25 13:08 MB (Rec: 01/27/25 13:36 MB Desktop) Physical Therapy Treatment Exercises Exercises Ankle Pumps,Gluteal Sets,Quad Sets,Heel Slides Education Education Provided Precautions,Weight Bearing Status,Safety Other Treatments Other Treatment They report he had a pre-op appointment at [facility] Performed and got handouts. They are not sure about anterior hip precautions that Dr. Gallegos ordered. Dr. Gallegos is available during assessment and she reports no hyperextension, no falls and progress to cane as appropriate. M7 PT-IP Assessment and Plan Start: 01/27/25 13:28 Freq: NEEDED Status: Active Protocol: Document 01/27/25 13:08 MB (Rec: 01/27/25 13:36 MB Desktop) PT Summary Assessment and Plan Potential Rehabilitation Good Potential Status of Condition Evolving at Evaluation Summary Impairments ROM,Strength,Balance,Coordination,Gait Assessment Summary Pt is s/p right anterior hip replacement today. Pt is doing well post-op. He is [place] and answers many questions. They report he had a pre-op appointment at [facility] and got handouts. They are not sure about anterior hip precautions that Dr. Gallegos ordered. Dr. Gallegos is available during assessment and she reports no hyperextension, no falls and progress to cane as appropriate. Pt is I with bed mobility, transfers and gait with RW once practiced. No further acute PT needs. Frequency of Treatment Frequency Of Discharge Treatment Precautions Other Precautions No hyperextension right hip Weight Bearing Status Weight Bearing Weight Bear as Tolerated Status Recommendations To Nursing Amount of Assist Standby Assistance Needed Discharge Recommendations PT Discharge Home with Assistance,Outpatient PT Recommendations Transportation Needs Private Vehicle at Discharge - PT assist x1
== END 2025-01-27 13:48 | disposition home or self-care (01) ==
LOC: OR 06:09 → AC 06:10
PROVIDERS: PCP Family Medicine; Referring Provider Family Medicine; Visit Provider Orthopaedic Surgery
PROC: (CPT 27130; principal; 2025-01-27 07:45)
DX: M16.11 Unilateral primary osteoarthritis, right hip (principal); E11.9 Type 2 diabetes mellitus without complications; K21.9 Gastro-esophageal reflux disease without esophagitis; I10 Essential (primary) hypertension; E78.5 Hyperlipidemia, unspecified; I48.91 Unspecified atrial fibrillation; Z79.01 Long term (current) use of anticoagulants; Z87.891 Personal history of nicotine dependence
CPT/HCPCS: 27130; 73502; 76000; 82962; 97161; C1776; C1713; J0330; J0666; J0690; J1100; J1171; J1885; J2405; J2704; J3010; J3490

== ENCOUNTER → 2025-02-11 11:06 | Outpatient (CLI) | payer MEDICARE, SELFPAY ==
[2025-02-11 12:01] LABS: Hemoglobin A1C% w Est Avg Glu 7.1 % (4.0-6.0)
[2025-02-11 12:42] LABS: Prostate Specific Antigen 2.27 ng/mL (0.10-4.00)
== END ==
PROVIDERS: PCP Family Medicine; Referring Provider Family Medicine; Visit Provider Family Medicine
DX: N40.0 Benign prostatic hyperplasia without lower urinary tract symptoms (principal); E11.69 Type 2 diabetes mellitus with other specified complication; E78.5 Hyperlipidemia, unspecified
CPT/HCPCS: 36415; 83036; 84153